=== PATIENT | female | born 1995 | race African-American/Black ===

== ENCOUNTER 2017-03-10 22:27 | Observation (INO) | payer BC ==
[~2017-03-10] VITALS: Ht 165.1 cm; Wt 84.1 kg
[2017-03-10] MEDS ORDERED: ONDANSETRON INJ 2 MG/ML 2 ML VIAL IV STA (23:04)
[2017-03-10] MEDS ORDERED: MoRPHine SULFATE 10 MG/ML CARP/VIAL IV STA (23:04)
[2017-03-10] MEDS ORDERED: SODIUM CHLORIDE 0.9% 1000ML 1,000 ML IV STA (23:04)
[2017-03-10 23:24] LABS: URINE APPEARANCE CLEAR (CLEAR); URINE BILIRUBIN NEG (NEG); URINE COLOR YELLOW; URINE NITRITE NEG (NEG); URINE SPECIFIC GRAVITY 1.013 (1.000-1.030); UROBILINOGEN NEG (NEG); ZZUR CULT IF INDIC CLEAN CATCH NO
[2017-03-10 23:32] LABS: MANUAL MICROSCOPIC REQUIRED? NO; REVIEW REQ? NO
[2017-03-10 23:32] LABS: BASO % 0.2 %; BASO ABS # 0.02 K/uL (0-0.2); COMPLETE YES; EOS % 2.3 %; HEMATOCRIT 37.9 % (37-47); IG% 0.4 %; LYMPH % 22.5 %; LYMPH ABS # 2.68 K/uL (1.2-3.4); MEAN CELL VOLUME 80.5 fL (80-100); MEAN CORPUSCULAR HEMOGLOBIN 27.4 pg (25-34); MONO % 6.1 %; NEUT % 68.5 %; PLATELET COUNT 346 K/uL (130-400); RED BLOOD COUNT 4.71 M/uL (4.2-5.4); WHITE BLOOD COUNT 11.92 K/uL (4.8-10.8)
[2017-03-11] MEDS ORDERED: OPTIRAY 320 IV PRN
[2017-03-11 00:03] LABS: BUN/CREATININE RATIO 10.3 (10-20); CALCIUM 9.3 mg/dl (8.5-10.1); CREATININE 0.76 mg/dl (0.60-1.20); POTASSIUM 3.7 mmol/L (3.5-5.1)
--- NOTE | 2017-03-11 00:44 | EMERGENCY ROOM VISIT NOTE ---
History First contact with patient: 22:52 Chief Complaint: ABDOMINAL PAIN Stated Complaint: PELVIC PAIN ON RT SIDE Nursing Triage Summary: lower abd pain since 1729. Denies vomiting or diarhrea. History of Present Illness The patient is a 21 year old female who presents to the Emergency Room with complaints of right lower quadrant abdominal pain. The patient reports that she first developed a generalized abdominal pain approximately 6 hours ago. She states that the pain has since localized to the right lower quadrant and is sharp in nature. She rates her discomfort a 9/10. She is nauseous but denies any vomiting. She has not taken any medication for the pain. She reports the pain has been gradually worsening. She states the pain is worse with movement and walking. She denies any history of similar symptoms. She denies any history of abdominal surgery. She denies any history of ovarian cyst. She denies urinary symptoms, changes in bowel movements, fevers or abnormal vaginal discharge. Review of Systems A complete 10-point Review of Systems was discussed with the patient, with pertinent positives and negatives listed in the History of Present Illness. All remaining Review of Systems questions can be considered negative unless otherwise specified. Past Medical/Surgical History Medical Problems: (1) Acute appendicitis (2) No significant medical problems Surgical Problems: (1) No significant past surgical history Social History Smoking Status: Never Smoker Alcohol Use: occasionally Marital Status: single Occupation Status: [employer] student Current/Historical Medications No Active Prescriptions or Reported Meds Allergies Coded Allergies: Penicillins (Verified Allergy, Unknown, ANAPHYLAXIS, 03/11/17) Physical Exam Vital Signs Date Time Temp Pulse Resp B/P Pulse Ox O2 Delivery O2 Flow Rate FiO2 03/11/17 01:37 90 16 133/80 100 03/10/17 22:32 37.4 87 18 125/82 99 Room Air Physical Exam VITALS: Vitals are noted on the nurse's note and reviewed by myself. Vital signs stable. GENERAL: This is a 21-year-old female, in no acute distress, nondiaphoretic, well-developed well-nourished. SKIN: Capillary reflex less than 2 seconds. HEENT: Normocephalic. PERRLA. EOMI. Nares patent. Mucous membranes moist. Neck is supple without nuchal rigidity. HEART: Regular rate and rhythm without murmurs gallops or rubs. LUNGS: Clear to auscultation bilaterally without wheezes, rales or rhonchi. ABDOMEN: Positive bowel sounds x 4. Significant tenderness to the right lower quadrant. Positive Rovsing sign. Slight guarding, no rebound tenderness. NEURO: Patient was alert and oriented to person place and time. Medical Decision & Procedures ER Provider Diagnostic Interpretation: CT ABDOMEN & PELVIS: The appendix measures 1.1 cm in caliber. It is fluid-filled. There is mild wall thickening. Pericholecystic edema is noted. A punctate appendicolith is present. Findings are compatible with acute appendicitis. No definite evidence for abscess or perforation at this time. Remainder of examination shows no definite evidence for an additional acute inflammatory process. Radiologist: German Bejarano MD Laboratory Results 03/10/17 23:10 Red Blood Count 4.71, Mean Corpuscular Volume 80.5, Mean Corpuscular Hemoglobin 27.4, Mean Corpuscular Hemoglobin Concent 34.0, Mean Platelet Volume 10.0, Neutrophils (%) (Auto) 68.5, Lymphocytes (%) (Auto) 22.5, Monocytes (%) (Auto) 6.1, Eosinophils (%) (Auto) 2.3, Basophils (%) (Auto) 0.2, Neutrophils # (Auto) 8.16, Lymphocytes # (Auto) 2.68, Monocytes # (Auto) 0.73, Eosinophils # (Auto) 0.28, Basophils # (Auto) 0.02 03/10/17 23:10 Test 03/10/17 22:50 03/10/17 23:10 Urine Color YELLOW Urine Appearance CLEAR (CLEAR) Urine pH 8.0 (4.5-7.5) Urine Specific [place] 1.013 (1.000-1.030) Urine Protein NEG (NEG) Urine Glucose (UA) NEG (NEG) Urine Ketones NEG (NEG) Urine Occult Blood NEG (NEG) Urine Nitrite NEG (NEG) Urine Bilirubin NEG (NEG) Urine Urobilinogen NEG (NEG) Urine Leukocyte Esterase NEG (NEG) Urine Test NEG (NEG) White Blood Count 11.92 K/uL (4.8-10.8) Red Blood Count 4.71 M/uL (4.2-5.4) Hemoglobin 12.9 g/dL (12.0-16.0) Hematocrit 37.9 % (37-47) Mean Corpuscular Volume 80.5 fL (80-100) Mean Corpuscular Hemoglobin 27.4 pg (25-34) Mean Corpuscular Hemoglobin Concent 34.0 g/dl (32-36) Platelet Count 346 K/uL (130-400) Mean Platelet Volume 10.0 fL (7.4-10.4) Neutrophils (%) (Auto) 68.5 % Lymphocytes (%) (Auto) 22.5 % Monocytes (%) (Auto) 6.1 % Eosinophils (%) (Auto) 2.3 % Basophils (%) (Auto) 0.2 % Neutrophils # (Auto) 8.16 K/uL (1.4-6.5) Lymphocytes # (Auto) 2.68 K/uL (1.2-3.4) Monocytes # (Auto) 0.73 K/uL (0.11-0.59) Eosinophils # (Auto) 0.28 K/uL (0-0.5) Basophils # (Auto) 0.02 K/uL (0-0.2) RDW Standard Deviation 37.1 fL (36.4-46.3) RDW Coefficient of Variation 12.6 % (11.5-14.5) Immature Granulocyte % (Auto) 0.4 % Immature Granulocyte # (Auto) 0.05 K/uL (0.00-0.02) Anion Gap 7.0 mmol/L (3-11) Est Creatinine Clear Calc Drug Dose 126.5 ml/min Estimated GFR () 130.9 Estimated GFR (Non- 112.9 BUN/Creatinine Ratio 10.3 (10-20) Calcium Level 9.3 mg/dl (8.5-10.1) Total Bilirubin 0.3 mg/dl (0.2-1) Aspartate Amino Transf (AST/SGOT) 22 U/L (15-37) Alanine Aminotransferase (ALT/SGPT) 27 U/L (12-78) Alkaline Phosphatase 61 U/L (45-117) Total Protein 8.9 gm/dl (6.4-8.2) Albumin 4.4 gm/dl (3.4-5.0) Globulin 4.5 gm/dl (2.5-4.0) Albumin/Globulin Ratio 1.0 (0.9-2) Lipase 190 U/L (73-393) Medications Administered Medications (Trade) Dose Ordered Sig/Breezy Route Start Time Stop Time Status Last Admin Dose Admin Sodium Chloride (Nss 1000ml) 1,000 ml @ 999 mls/hr Q1H1M STAT IV 03/10/17 23:04 03/11/17 00:04 DC 03/10/17 23:04 999 MLS/HR Ondansetron HCl (Zofran Inj) 4 mg NOW STAT IV 03/10/17 23:04 03/10/17 23:06 DC 03/10/17 23:24 4 MG Morphine Sulfate (MoRPHine SULFATE INJ) 6 mg NOW STAT IV 03/10/17 23:04 03/10/17 23:06 DC 03/10/17 23:26 6 MG Morphine Sulfate (MoRPHine SULFATE INJ) 4 mg NOW STAT IV 03/11/17 01:53 03/11/17 01:54 DC 03/11/17 02:00 4 MG Ciprofloxacin/ Dextrose (Cipro / D5w) 400 mg NOW STAT IV 03/11/17 02:26 03/11/17 02:27 DC 03/11/17 02:35 400 MG Metronidazole (Flagyl / Nss) 500 mg NOW STAT IV 03/11/17 02:22 03/11/17 02:26 DC 03/11/17 02:30 500 MG Oxycodone/ Acetaminophen (Percocet 5-325mg Tab) 1 tab Q4H PRN PO 03/11/17 02:30 03/25/17 02:29 03/11/17 05:36 1 TAB ED Course The patient was evaluated as above. Labs were drawn and IV access was obtained. Patient was medicated with 6 mg morphine IV and 4 mg Zofran IV. She was hydrated with 1 L of saline solution. Patient requested additional pain medication and was given 4 more milligrams of morphine. CT scan was performed and read by radiology as above. Patient was reevaluated and findings were discussed. Case was discussed with Dr. Roman at this time. He will take the patient to the OR. Medical Decision Differential diagnosis includes appendicitis, ovarian cyst, ovarian torsion, urinary tract infection, gastroenteritis, colitis, ectopic , among others. The patient is a 21-year-old female who presents today complaining of right lower quadrant abdominal pain. Labs revealed a leukocytosis of 11.9. No anemia or concerning electrolyte abnormality. Urinalysis was not suggestive of infection. Urine was negative. CT scan showed evidence of acute appendicitis. Case was discussed with the general surgeon component overhaul operator, who agreed to take the patient to the OR for surgical treatment. Please see his note for operative record and patient disposition. The patient's case was reviewed with Dr. Brand, ED attending physician, who agreed with my assessment and treatment plan. Impression Primary Impression: Acute appendicitis Departure Information Prescriptions No Active Prescriptions or Reported Meds Referrals No Doctor, Assigned (PCP) Patient Instructions [facility]
[2017-03-11] MEDS ORDERED: MoRPHine SULFATE 4 MG/ML 1 ML CARP\\VIAL IV STA (01:53)
[2017-03-11] MEDS ORDERED: MoRPHine SULFATE 4 MG/ML 1 ML CARP\\VIAL ONE (02:01)
[2017-03-11] MEDS ORDERED: METRONIDAZOLE 500MG / 100ML NSS IV STA (02:22)
[2017-03-11] MEDS ORDERED: CIPROFLOXACIN 400MG / 200ML D5W IV STA (02:26)
[2017-03-11] MEDS ORDERED: ACETAMINOPHEN 325 MG TAB PO PRN ×2 (02:30→04:30)
[2017-03-11] MEDS ORDERED: OXYCODONE/ACETAMINOPHEN 5-325 TAB PO PRN ×2 (02:30→04:30)
[2017-03-11] MEDS ORDERED: HYDROmorphone INJ 1 MG/ML SYR IV PRN ×2 (02:30→02:45)
[2017-03-11] MEDS ORDERED: ONDANSETRON INJ 2 MG/ML 2 ML VIAL IV PRN ×3 (02:30→04:30)
[2017-03-11] MEDS ORDERED: D5W AND 1/2NSS + 20MEQ KCL 1,000 ML IV SCH (02:30)
--- NOTE | 2017-03-11 02:30 | History and Physical ---
History & Physical Date & Time of Service: Mar 11, 2017 at 02:23 Chief Complaint: Pelvic Pain On Rt Side Primary Care Physician: No Doctor, Assigned History of Present Illness Source: patient The patient is a 21 year old female who presents to the Emergency Room with complaints of right lower quadrant abdominal pain. The patient reports that she first developed a generalized abdominal pain approximately 6 hours ago. She states that the pain has since localized to the right lower quadrant and is sharp in nature. She rates her discomfort a 9/10. She is nauseous but denies any vomiting. She has not taken any medication for the pain. She reports the pain has been gradually worsening. She states the pain is worse with movement and walking. She denies any history of similar symptoms. She denies any history of abdominal surgery. She denies any history of ovarian cyst. She denies urinary symptoms, changes in bowel movements, fevers or abnormal vaginal discharge. 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 Allergies Coded Allergies: Penicillins (Verified Allergy, Unknown, ANAPHYLAXIS, 03/11/17) Home Medications No Active Prescriptions or Reported Meds Review of Systems Constitutional: No chills, No fatigue, No fever, No problem reported, No sweats , No weakness, No weight loss Eyes: No diplopia, No discharge, No eye pain, No problem reported, No redness, No worsening of vision ENT: No dental problems, No hearing loss, No nasal symptoms, No problem reported, No sore throat, No tinnitus, No trouble swallowing, No unusual epistaxis Respiratory: No cough, No dyspnea at rest, No dyspnea on exertion, No hemoptysis, No problem reported, No shortness of breath, No sputum, No wheezing Cardiovascular: No PND, No chest pain, No claudication, No edema, No orthopnea , No palpitations, No problem reported Abdomen: + nausea, + pain Musculoskeletal: No calf pain, No joint pain, No muscle pain, No problem reported, No swelling Genitourinary - Female: No dysmenorrhea, No dysuria, No hematuria, No menorrhagia, No metrorrhagia, No , No problem reported, No rash, No urinary frequency, No urinary incontinence, No urinary retention, No urinary urgency, No vaginal bleeding, No vaginal discharge, No vaginal itching, No vulvodynia Neurologic: No balance problems, No memory loss, No numbness/tingling, No paralysis, No problem reported, No vertigo, No weakness Psychiatric: No anhedonism, No anxiety, No depression symptoms, No insomnia, No problem reported, No substance abuse Endocrine: No excessive thirst, No excessive urination, No fatigue, No problem reported Hematologic / Lymphatic: No abnormal bleeding/bruising, No clotting problems, No night sweats, No problem reported, No swollen lymph nodes Physical Exam Vital Signs Date Time Temp Pulse Resp B/P Pulse Ox O2 Delivery O2 Flow Rate FiO2 03/11/17 01:37 90 16 133/80 100 03/10/17 22:32 37.4 87 18 125/82 99 Room Air General Appearance: WD/WN, + mild distress Head: normocephalic Eyes: normal inspection ENT: normal ENT inspection Neck: supple, no JVD Respiratory/Chest: chest non-tender, lungs clear Cardiovascular: regular rate, rhythm, no edema, no gallop, no JVD, no murmur Abdomen/GI: soft, + tenderness (tenderness at RLQ) Extremities/Musculoskelatal: normal inspection, no calf tenderness, normal capillary refill 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 nml as tested, no motor/sensory deficits, alert, normal mood/affect Skin: normal color, warm/dry Diagnostics Laboratory Results Results Past 24 Hours Test 03/10/17 22:50 03/10/17 23:10 Range/Units Urine Color YELLOW Urine Appearance CLEAR CLEAR Urine pH 8.0 4.5-7.5 Urine Specific [place] 1.013 1.000-1.030 Urine Protein NEG NEG Urine Glucose (UA) NEG NEG Urine Ketones NEG NEG Urine Occult Blood NEG NEG Urine Nitrite NEG NEG Urine Bilirubin NEG NEG Urine Urobilinogen NEG NEG Urine Leukocyte Esterase NEG NEG Urine Test NEG NEG White Blood Count 11.92 4.8-10.8 K/uL Red Blood Count 4.71 4.2-5.4 M/uL Hemoglobin 12.9 12.0-16.0 g/dL Hematocrit 37.9 37-47 % Mean Corpuscular Volume 80.5 80-100 fL Mean Corpuscular Hemoglobin 27.4 25-34 pg Mean Corpuscular Hemoglobin Concent 34.0 32-36 g/dl Platelet Count 346 130-400 K/uL Mean Platelet Volume 10.0 7.4-10.4 fL Neutrophils (%) (Auto) 68.5 % Lymphocytes (%) (Auto) 22.5 % Monocytes (%) (Auto) 6.1 % Eosinophils (%) (Auto) 2.3 % Basophils (%) (Auto) 0.2 % Neutrophils # (Auto) 8.16 1.4-6.5 K/uL Lymphocytes # (Auto) 2.68 1.2-3.4 K/uL Monocytes # (Auto) 0.73 0.11-0.59 K/uL Eosinophils # (Auto) 0.28 0-0.5 K/uL Basophils # (Auto) 0.02 0-0.2 K/uL RDW Standard Deviation 37.1 36.4-46.3 fL RDW Coefficient of Variation 12.6 11.5-14.5 % Immature Granulocyte % (Auto) 0.4 % Immature Granulocyte # (Auto) 0.05 0.00-0.02 K/uL Sodium Level 140 136-145 mmol/L Potassium Level 3.7 3.5-5.1 mmol/L Chloride Level 103 98-107 mmol/L Carbon Dioxide Level 30 21-32 mmol/L Anion Gap 7.0 3-11 mmol/L Blood Urea Nitrogen 8 7-18 mg/dl Creatinine 0.76 0.60-1.20 mg/dl Est Creatinine Clear Calc Drug Dose 126.5 ml/min Estimated GFR () 130.9 Estimated GFR (Non- 112.9 BUN/Creatinine Ratio 10.3 10-20 Random Glucose 87 70-99 mg/dl Calcium Level 9.3 8.5-10.1 mg/dl Total Bilirubin 0.3 0.2-1 mg/dl Aspartate Amino Transf (AST/SGOT) 22 15-37 U/L Alanine Aminotransferase (ALT/SGPT) 27 12-78 U/L Alkaline Phosphatase 61 45-117 U/L Total Protein 8.9 6.4-8.2 gm/dl Albumin 4.4 3.4-5.0 gm/dl Globulin 4.5 2.5-4.0 gm/dl Albumin/Globulin Ratio 1.0 0.9-2 Lipase 190 73-393 U/L Diagnostic Radiology CT scan- acute appendicitis Impression Assessment and Plan IMP: acute appendicitis Plan, pt will have laparoscopic appendectomy, possible open, D/W benefits, risks and alternatives of the procedure, the risks- infection, bleeding, abscess , injury bowel, pt understood, she agrees with the plan, I answered all questions, ASA Classification: ASA Class I Level of Care Med/Surg VTE Prophylaxis VTE Risk Assessment Done? Y/N: Yes Risk Level: Very Low Given or contraindicated: SCD's
[2017-03-11] MEDS ORDERED: BUPIVACAINE 0.5 % 5 MG/1 ML MPF 30ML VIAL ONE (02:35)
[2017-03-11] MEDS ORDERED: LIDOCAINE HCL 1% 20 ML VIAL ONE (02:35)
[2017-03-11] MEDS ORDERED: BACITRACIN OINT 15 GM TUBE ONE (02:35)
[2017-03-11] MEDS ORDERED: ATROPINE SULFATE 0.1 MG/ML 5ML SYR IV PRN (02:45)
[2017-03-11] MEDS ORDERED: FENTANYL CITRATE INJ 50 MCG/1 ML 2 ML VIAL IV PRN (02:45)
[2017-03-11] MEDS ORDERED: MEPERIDINE HCL 25 MG/ML CARP IV PRN (02:45)
[2017-03-11] MEDS ORDERED: EpHEDrine SULFATE INJ 50 MG/ML AMP IV PRN (02:45)
[2017-03-11] MEDS ORDERED: LABETALOL HCL IV 5 MG/ML 20ML IV PRN (02:45)
[2017-03-11] MEDS ORDERED: MIDAZOLAM HCL 1 MG/ML 2ML VIAL ONE (03:09)
[2017-03-11] MEDS ORDERED: FENTANYL CITRATE INJ 50 MCG/1 ML 2 ML VIAL ONE (03:10)
--- NOTE | 2017-03-11 04:16 | [facility] Post Operative Brief Note ---
Immediate Operative Summary Operative Date Mar 11, 2017. Pre-Operative Diagnosis Acute appendicitis Post-Operative Diagnosis Acute appendicitis Procedure(s) Performed Laparoscopic Appendectomy Surgeon Dr. Roman Pega Developer Surgeon(s) none Estimated Blood Loss 5ml Findings acute appendicitis Specimens A: Appendix Drains none Anesthesia General Complication(s) None Disposition Recovery Room / PACU
[2017-03-11] MEDS ORDERED: HYDROmorphone INJ 2 MG/ML SYR/VIAL IV PRN (04:30)
[2017-03-11] MEDS ORDERED: DEXAMETHASONE SOD INJ 4 MG/ML VIAL ONE (04:42)
[2017-03-11] MEDS ORDERED: LIDOCAINE HCL 2% 2 ML VIAL (20MG/ML) ONE (04:48)
[2017-03-11] MEDS ORDERED: ONDANSETRON INJ 2 MG/ML 2 ML VIAL ONE (04:48)
[2017-03-11] MEDS ORDERED: ROCURONIUM BROMID 50MG/5ML SYR ONE (04:48)
[2017-03-11] MEDS ORDERED: NEOSTIGMINE METHYLSULFATE 5 MG/5 ML SYR ONE (04:48)
[2017-03-11] MEDS ORDERED: GLYCOPYRROLATE INJ 0.2 MG/ML VIAL ONE (04:48)
[2017-03-11] MEDS ORDERED: PROPOFOL IV EMULSION 10 MG/ML 20 ML VIAL IV ONE (04:48)
[2017-03-11] MEDS ORDERED: IV FLUIDS COMPLETED PRN (05:00)
[2017-03-11 05:10] VITALS: BP 108/70; PULSE 84; TEMP 37.2; O2SAT 100; Ht 165.1 cm; Wt 84.1 kg
[2017-03-11] MEDS ORDERED: LACTATED RINGER'S 1000ML 1,000 ML IV SCH (05:30)
--- NOTE | 2017-03-11 05:30 | Anesthesiology Progress Note ---
Anesthesia Post Op Note Date & Time Mar 11, 2017 at 05:29 Vital Signs Pain Intensity: 0 Vital Signs Past 12 Hours Date Time Temp Pulse Resp B/P Pulse Ox O2 Delivery O2 Flow Rate FiO2 03/11/17 05:00 36.5 88 18 139/90 100 Nasal Cannula 2 03/11/17 04:55 74 17 133/88 100 Nasal Cannula 2 03/11/17 04:45 74 17 135/90 100 Mask 5 03/11/17 04:35 36.4 71 17 140/86 100 Mask 10 03/11/17 04:27 36.4 100 17 110/74 100 Mask 10 03/11/17 02:47 139/85 03/11/17 01:37 90 16 133/80 100 03/10/17 22:32 37.4 87 18 125/82 99 Room Air Notes Mental Status: alert / awake / arousable, participated in evaluation Pt Amnestic to Procedure: Yes Nausea / Vomiting: adequately controlled Pain: adequately controlled Airway Patency, RR, SpO2: stable & adequate BP & HR: stable & adequate Hydration State: stable & adequate Anesthetic Complications: no major complications apparent
[2017-03-11 05:41] VITALS: BP 114/72; PULSE 83; TEMP 36.9; O2SAT 100
[2017-03-11 06:05] VITALS: BP 114/74; PULSE 69; TEMP 37.1; O2SAT 98
[2017-03-11 07:04] VITALS: BP 124/73; PULSE 78; TEMP 36.8; O2SAT 96
--- NOTE | 2017-03-11 07:38 | DIAGNOSTIC IMAGING REPORT ---
ABDOMEN AND PELVIS CT WITH IV AND ORAL CONTRAST CT DOSE: 694.50 mGy.cm HISTORY: Right lower quadrant pain. TECHNIQUE: Multiaxial CT images of the abdomen and pelvis were performed following the use of intravenous and oral contrast. COMPARISON STUDY: None. FINDINGS: The lung bases are clear. The liver, spleen, gallbladder, pancreas, kidneys, and adrenal glands are within normal limits. No bowel obstruction. The pelvic organs are unremarkable. No suspicious lytic or blastic osseous lesions. Trace pelvic free fluid. The appendix is fluid-filled and distended up to 11 mm. There is mild periappendiceal fat stranding. There is a punctate appendicolith present. These findings are consistent with acute appendicitis. No perforation or abscess at this time. IMPRESSION: Acute appendicitis. Electronically signed by: Rui Corcoran M.D. 03/11/2017 7:36 AM Dictated Date/Time: 03/11/2017 7:33 AM
[2017-03-11] MEDS ORDERED: METRONIDAZOLE / NSS 500 MG in PREMIXED NSS 100 ML IV SCH (08:00)
[2017-03-11 08:05] VITALS: BP 119/74; PULSE 79; TEMP 36.9; O2SAT 97
--- NOTE | 2017-03-11 08:09 | Surgery Progress Note ---
Surgery Progress Note Date of Service Mar 11, 2017. Subjective Post OP Day: + feeling well F/U S/P laparoscopic appendectomy, pt is doing fine, good control incision pain , no Nausea, no vomiting, Objective Vital Signs: Date Time Temp Pulse Resp B/P Pulse Ox O2 Delivery O2 Flow Rate FiO2 03/11/17 07:04 36.8 78 17 124/73 96 Room Air 03/11/17 06:05 37.1 69 16 114/74 98 Room Air 03/11/17 05:41 36.9 83 16 114/72 100 Room Air 03/11/17 05:10 37.2 84 16 108/70 100 Room Air 03/11/17 05:10 100 Room Air 03/11/17 05:10 100 Room Air 03/11/17 05:00 36.5 88 18 139/90 100 Nasal Cannula 2 03/11/17 04:55 74 17 133/88 100 Nasal Cannula 2 03/11/17 04:45 74 17 135/90 100 Mask 5 03/11/17 04:35 36.4 71 17 140/86 100 Mask 10 03/11/17 04:27 36.4 100 17 110/74 100 Mask 10 03/11/17 02:47 139/85 03/11/17 01:37 90 16 133/80 100 03/10/17 22:32 37.4 87 18 125/82 99 Room Air General Appearance: WD/WN Head: normocephalic Neck: supple Respiratory/Chest: chest non-tender, lungs clear Cardiovascular: regular rate, rhythm, no edema, no JVD Abdomen: normal bowel sounds, non distended, soft, + tenderness Incision(s): clean, dry, intact Extremities: normal range of motion, non-tender, normal inspection Laboratory Results: Results Past 24 Hours Test 03/10/17 22:50 03/10/17 23:10 Range/Units Urine Color YELLOW Urine Appearance CLEAR CLEAR Urine pH 8.0 4.5-7.5 Urine Specific [place] 1.013 1.000-1.030 Urine Protein NEG NEG Urine Glucose (UA) NEG NEG Urine Ketones NEG NEG Urine Occult Blood NEG NEG Urine Nitrite NEG NEG Urine Bilirubin NEG NEG Urine Urobilinogen NEG NEG Urine Leukocyte Esterase NEG NEG Urine Test NEG NEG White Blood Count 11.92 4.8-10.8 K/uL Red Blood Count 4.71 4.2-5.4 M/uL Hemoglobin 12.9 12.0-16.0 g/dL Hematocrit 37.9 37-47 % Mean Corpuscular Volume 80.5 80-100 fL Mean Corpuscular Hemoglobin 27.4 25-34 pg Mean Corpuscular Hemoglobin Concent 34.0 32-36 g/dl Platelet Count 346 130-400 K/uL Mean Platelet Volume 10.0 7.4-10.4 fL Neutrophils (%) (Auto) 68.5 % Lymphocytes (%) (Auto) 22.5 % Monocytes (%) (Auto) 6.1 % Eosinophils (%) (Auto) 2.3 % Basophils (%) (Auto) 0.2 % Neutrophils # (Auto) 8.16 1.4-6.5 K/uL Lymphocytes # (Auto) 2.68 1.2-3.4 K/uL Monocytes # (Auto) 0.73 0.11-0.59 K/uL Eosinophils # (Auto) 0.28 0-0.5 K/uL Basophils # (Auto) 0.02 0-0.2 K/uL RDW Standard Deviation 37.1 36.4-46.3 fL RDW Coefficient of Variation 12.6 11.5-14.5 % Immature Granulocyte % (Auto) 0.4 % Immature Granulocyte # (Auto) 0.05 0.00-0.02 K/uL Sodium Level 140 136-145 mmol/L Potassium Level 3.7 3.5-5.1 mmol/L Chloride Level 103 98-107 mmol/L Carbon Dioxide Level 30 21-32 mmol/L Anion Gap 7.0 3-11 mmol/L Blood Urea Nitrogen 8 7-18 mg/dl Creatinine 0.76 0.60-1.20 mg/dl Est Creatinine Clear Calc Drug Dose 126.5 ml/min Estimated GFR () 130.9 Estimated GFR (Non- 112.9 BUN/Creatinine Ratio 10.3 10-20 Random Glucose 87 70-99 mg/dl Calcium Level 9.3 8.5-10.1 mg/dl Total Bilirubin 0.3 0.2-1 mg/dl Aspartate Amino Transf (AST/SGOT) 22 15-37 U/L Alanine Aminotransferase (ALT/SGPT) 27 12-78 U/L Alkaline Phosphatase 61 45-117 U/L Total Protein 8.9 6.4-8.2 gm/dl Albumin 4.4 3.4-5.0 gm/dl Globulin 4.5 2.5-4.0 gm/dl Albumin/Globulin Ratio 1.0 0.9-2 Lipase 190 73-393 U/L Assessment & Plan IMP : S/P laparoscopic appendectomy, pt is doing fine , pt wants to go home today, I gave pt post -op care instruction, pt understood, I answered all questions, F/U 1 week, full liquids
--- NOTE | 2017-03-11 08:12 | Discharge Instructions ---
Discharge Instructions Date of Service Mar 11, 2017. Admission Reason for Admission: Acute Appendicitis Discharge Discharge Diagnosis / Problem: S/P laparoscopic appendectomy Discharge Goals Goal(s): Decrease discomfort, Improve function Activity Recommendations Activity Limitations: per Instructions/Follow-up section Lifting Limitations: no more than 25 pounds Exercise/Sports Limitations: rest today May Resume Sexual Activity: when tolerated, after two weeks Shower/Bathe: may shower/bathe in 3 days Driving or Machine Use: resume 3 days after discharge . Instructions / Follow-Up Instructions / Follow-Up keep sonya dressings on for 4 days, she can take a shower on 03/15/2017, no driving while taking pain medicine, follow up 1 week, . Current Hospital Diet Patient's current hospital diet: Clear Liquid Diet Discharge Diet Recommended Diet: Regular Diet Procedures Procedures Performed: Laparoscopic Appendectomy Pending Studies Studies pending at discharge: no Medical Emergencies . Who to Call and When: Medical Emergencies: If at any time you feel your situation is an emergency, please call 911 immediately. . Non-Emergent Contact Non-Emergency issues call your: Surgeon Call Non-Emergent contact if: you have a fever, temperature is above 100.5, your pain is not controlled, your pain is worsening, wound has increased drainage, wound has increased redness . "Provider Documentation" section prepared by Coreen Roman. . VTE Core Measure Inpt VTE Proph given/why not?: SCD's [place] Drug Monitoring Program Search Results: no issues identified
[2017-03-11] MEDS ORDERED: OXYC-57 PO (08:14)
--- NOTE | 2017-03-11 09:25 | OPERATIVE REPORT ---
DATE OF OPERATION: 03/11/2017 PREOPERATIVE DIAGNOSIS: Acute appendicitis. POSTOPERATIVE DIAGNOSIS: Same. PROCEDURE: Laparoscopic appendectomy. SURGEON: Abel Angela MD ANESTHESIA: General. ESTIMATED BLOOD LOSS: About 5 mL. FINDINGS: Acute appendicitis. COMPLICATIONS: None. INDICATIONS FOR THE PROCEDURE: This is a 21-year-old female who presented to the ED with 1 day history of right lower quadrant pain. The patient had a CT scan done showing acute appendicitis. We decided to take the patient to the OR. We will do laparoscopic appendectomy, possible open. I did talk to the patient about the benefit and risk alternate procedure. I indicated the risks may include but not limited such as bleeding, infection, abscess, injury to bowel, incisional hernia. The patient understands. She signed informed consent. I answered all questions. DETAILS OF PROCEDURE: We brought the patient to the OR and put the patient in the supine position. The patient received SCD on bilateral legs to prevent DVT. Also, the patient received 400 mg of Cipro and 500 mg of Flagyl IV for prophylactic antibiotic. The patient received general anesthesia without difficulty. The abdomen was prepped and draped in routine sterile fashion. After time out, an injection of local anesthesia by using 1% lidocaine mixed with 0.25% Marcaine just above the umbilical. Then we made a small incision just above umbilical, opened fascia and opened peritoneum under direct vision. I put a Ciro trocar in, connected to CO2 to create pneumoperitoneum. flaw rate is 6 liter per minute. Pressure not more than 14 mmHg. Once we got a nice pneumoperitoneum, we put a 10 mm camera in, looked around the abdomen, it shows no more findings on the small bowel, large bowel; however, there is inflammation on the appendix showing some acute appendicitis. No free fluid on the pelvic area; normal looking on the liver. Then, we put another two 5 mm trocar on the left side lower quadrant. Once all trocars in, I used a grasper to mobilize the appendix. I used harmonic to take down the appendix, rechecked no active bleeding. Then I used a 40 mm Endo-MAMI staple transection in the base of the appendix, rechecked no active bleeding, no leak. Then we used catch bag to pull out the appendix through the catch bag, rechecked no active bleeding. Then we reinserted Ciro trocar in and created pneumoperitoneum again and looked around the abdomen. No injury to bowel, no active bleeding, no leak from the bowel. Then we removed all trocars under direct vision. No active bleeding from trocar sites. The pneumoperitoneum was released. Then I closed the umbilical incision, fascial layer by using #1 Vicryl [id number] x2, closed subcutaneous layer by using 2-0 Vicryl, closed skin by using 4-0 Monocryl. Then we closed another 3.5 mm trocar site skin only by using 4-0 Monocryl. We put the dressing on. The patient tolerated the procedure well. All instrument, needle and sponge count correct x2 at the end of case. The specimen sent to pathology. After the procedure, the patient transferred to recovery room in stable condition. After the procedure, I did talk to the patient and family member about OR finding and procedure we did, they understand. I attest to the content of the Intraoperative Record and any orders documented therein. Any exceptions are noted below. JESSICA
[2017-03-11 12:07] VITALS: BP 119/74; PULSE 79; TEMP 36.9; O2SAT 97
[2017-03-11] MEDS ORDERED: CIPROFLOXACIN / D5W 400 MG in PREMIXED IN D5W 200 ML IV SCH (14:00)
--- NOTE | 2017-03-11 22:16 | DISCHARGE SUMMARY ---
ADMITTING DIAGNOSIS: Acute appendicitis. DISCHARGE DIAGNOSIS: Same. OPERATION: Laparoscopic appendectomy. SURGEON: Dr. Coreen Roman. DETAILS OF DISCHARGE SUMMARY: This is a 21-year-old female who presented to the ED with 1 day history of right lower quadrant pain and the patient had a CT scan done which showed acute appendicitis. We took the patient to the OR. We did laparoscopic appendectomy in the OR, found the patient had acute appendicitis. The patient tolerated the procedure well. After the procedure, the patient transferred to recovery room, later on transported to surgical floor. The patient doing fine. She walked around, less abdominal pain, no nausea, no vomiting. She tolerated clear diet. PHYSICAL EXAMINATION: VITAL SIGNS: Temperature is 36.9, heart rate 79, respiratory rate 16, blood pressure is 119/73, O2 saturation 97% on room air. GENERAL: The patient is alert, awake, oriented x3. HEENT: With normal limitation. NEUROLOGIC: Intact. NECK: No JVD. CHEST: Bilateral lung sounds clear. HEART: Normal S1, S2. No murmur. ABDOMEN: Soft. Slight tenderness on the incision site. No rebound or pain. Not distended. All dressings intact. EXTREMITIES: No edema. PLAN: The patient wanted to go home today. I gave the patient postop care instructions. The patient understands. We will follow up the patient in 1 week.
== END 2017-03-11 12:40 | disposition home or self-care (01) ==
LOC: ENRESERVTM → ENRESERVDT → C.EDB 22:28 → C.3E 03-11 02:32
PROVIDERS: ADMIT Surgery; ATTEND Surgery
DX: K35.80 Unspecified acute appendicitis (principal)